=== PATIENT | female | born 1950 | race African-American/Black ===

== ENCOUNTER 2019-01-24 16:09 | Inpatient (IN) | payer OTHER ==
[~2019-01-24] VITALS: Ht 157.5 cm; Wt 84.4 kg
[~2019-01-24 16:09] MED LIST: ADULT LOW DOSE81 MG PO; ATORVASTATIN CA40 MG PO; GLUCOTROL10 MG PO; HYDROCHLOROTH12.5 M1 PO; METFORMIN HCL500 MG PO; TOPAMAX 25 MG T25 M1 PO; VERAPAMIL ER180 M1 PO; ZESTRIL20 MG PO
--- NOTE | 2019-01-24 17:02 | NUR ---
ASSESSMENT-PT WAS RECENTLY AT [facility] THEN WAS DISCHARGED TO [facility] FOR REHAB. PT SENT HERE TO INITIATE HEMODIALYSIS. PT SAYS SHE WAS TOLD IN SEP. THAT SHE NEEDED TO START HEMODIALYSIS AND PT THOUGHT SHE WOULD BE ABLE TO TO GET BY FROM A MEDICAL STANDPOINT BUT IS FAILING. PRIOR PT HAD BEEN LIVING AT HOME AND HER NIECE WAS STAYING WITH HER. PT HAS BEEEN USING A WALKER FOR ABOUT 3 MONTHS. NIECE HELPING HER WITH HER ADLS, MEALS, AND LAUNDRY. PT HAD BEEN DOING HER CLEANING. FAMILY PROVIDES TRANSPORTATION. PT HAS 3 SISTERS IN THE AREA. PT SAYS SHE HAD HH SERVICES IN [place]. BUT DOES NOT KNOW THE NAME OF HE AGENCY THAT CAME OUT. PT CURRENTLY SHORT OF BREATH AND HER 2 SISTERS HELPED PROVIDE ASSESSMENT INFO. FOLLOWING TO ASSIST WITH DC PLANNING.
[2019-01-24 17:53] VITALS: BP 185/97
[2019-01-24 18:11] LABS: HEMATOCRIT 24.3 % (37.0-47.0); HEMOGLOBIN 7.6 gm/dL (12.0-15.0); MCH 25.3 pg (26.0-34.0); MCHC 31.3 g/dL (28.0-37.0); MCV 80.8 fL (80.0-100.0); PLATELET COUNT 262 thou/uL (150-400); RBC 3.01 mil/uL (4.20-5.00); RDW 24.6 % (10.5-14.5); WBC 11.7 thou/uL (4.0-11.0)
[2019-01-24 18:32] LABS: ALBUMIN 1.7 g/dL (3.4-5.0); CALCIUM 7.8 mg/dL (8.5-10.1); CREATININE 5.5 mg/dL (0.6-1.0); POTASSIUM 5.4 mmol/L (3.5-5.1); TOTAL BILIRUBIN 0.1 mg/dL (<0.1-1.0); TOTAL PROTEIN 5.9 g/dL (6.4-8.2)
[2019-01-24 18:50] LABS: URINE BILIRUBIN NEGATIVE (Negative); URINE BLOOD 1+ (Negative); URINE CLARITY CLEAR; URINE COLOR YELLOW; URINE GLUCOSE-RANDOM* 1+ (Negative); URINE KETONES NEGATIVE (Negative); URINE LEUKOCYTES-REFLEX NEGATIVE (Negative); URINE NITRITE-REFLEX NEGATIVE (Negative); URINE PROTEIN (DIPSTICK) 3+ (Negative); URINE SPECIFIC GRAVITY 1.015 (1.005-1.035); URINE UROBILINOGEN 0.2 E.U./dl (0.2-1.0)
[2019-01-24 19:01] LABS: AMORPHOUS URATES Moderate /LPF (None Seen); BACTERIA-REFLEX None Seen /HPF (None Seen); CASTS None Seen /LPF (None Seen); SQUAMOUS 0-3 Few /LPF (0-3); URINE RBC 0-2 Rare /HPF (0-2); URINE WBC-REFLEX 0-5 Rare /HPF (0-5)
--- NOTE | 2019-01-24 19:08 | NUR ---
ASSESMENT COMPLETED. VSS. A/O. DENIES PAIN. SOA W/ EXERTION. NOTED GENERALIZED EDEMA. PLANS FOR TEMPORARY DIALYSIS CATH PLACEMENT IN AM. MURILLO PLACED. PT RESTING IN BED WILL CONT. TO MONITOR. BED ALARM ON.
[2019-01-24 19:12] LABS: ANISOCYTOSIS 3+; OVALOCYTES OCCASIONAL; SCHISTOCYTES OCCASIONAL
[2019-01-24 21:00] VITALS: BP 164/84
--- NOTE | 2019-01-25 01:29 | NUR ---
ASSESSMENT COMPLETED.LASIX ADMINISTRED ORDERED.MURILLO CATH TO DD.PT REPOSITIONED WHILE IN BED PER HER REQUEST.PT NPO AT THIS TIME FOR A PROCEDURE IN THE AM.FALL PRECAUTIONS IN PLACE. CALL LIGHT WITHIN REACH.
[2019-01-25 03:45] LABS: ALBUMIN 1.6 g/dL (3.4-5.0); CALCIUM 7.7 mg/dL (8.5-10.1); CREATININE 5.3 mg/dL (0.6-1.0); MAGNESIUM 2.1 mg/dL (1.8-2.4); PHOSPHORUS 7.6 mg/dL (2.5-4.9); POTASSIUM 5.4 mmol/L (3.5-5.1)
[2019-01-25 04:00] VITALS: BP 170/78
[2019-01-25 07:49] VITALS: BP 182/81
--- NOTE | 2019-01-25 11:28 | NUR ---
RECEIVED PT CARE APPROX 0700. A/O. DENIES PAIN. SOA W/ EXERTION. NO NV. DIALYSIS CATH PLACED IN IR TODAY. PT IN DIALYSIS AT THIS TIME- TOLERATING WELL. WILL CONT. TO MONITOR.
[2019-01-25 13:10] LABS: GLYCOHEMOGLOBIN (HGB A1C) 7.2 % (4.8-5.6)
--- NOTE | 2019-01-25 13:47 | NUR ---
FAXED FACE SHEET, H&P, RENAL CONSULT, DIALYSIS FLOW SHEET,CHEMISTRIES, CBC, COAGS, UA, CXR AND LINE PLACEMENT INFO TO [facility] TO GET PT SET-UP FOR OUTPT HEMODIALYSIS.
--- NOTE | 2019-01-25 14:38 | NUR ---
Nutrition: screen for dx new HD pt. Dialysis catheter placed in IR and pt receiving HD this am, has been NPO. No wt hx, note of swollen face in physician assessement and expect wt up with fluid gain. Lasix and other meds reviewed. K+ 5.4, Cl 108, BUN 57, Cr 5.3, Phos 7.6, albumin 1.6. No acute nutrition concerns noted at this time, does not appear at significant risk. Rec renal diet; RD available via consult for edu.
[2019-01-25] MEDS ORDERED: COREG25 MG PO (15:41)
[2019-01-25] MEDS ORDERED: NORVASC10 MG PO (15:41)
[2019-01-25] MEDS ORDERED: HYDRALAZINE 5050 MG PO (15:42)
[2019-01-25] MEDS ORDERED: PLAVIX 75 MG TA75 M1 PO (15:42)
[2019-01-25] MEDS ORDERED: TRAZODONE HCL50 MG PO (15:42)
[2019-01-25] MEDS ORDERED: DEMADEX20 MG PO (15:43)
[2019-01-25] MEDS ORDERED: SYSTANE GEL EYE10 ML OPHTHALMIC (15:44)
[2019-01-25 16:14] VITALS: BP 191/86
[2019-01-25 19:17] VITALS: BP 186/62
--- NOTE | 2019-01-26 02:30 | NUR ---
PT'S FAMILY AT BEDSIDE AT SHIFT CHANGE.PT WAS OBSERVED SITTING UP IN THE RECLINER IN HER ROOM WATCHING TV.PT STILL EDEMATOUS BUT BETTER THAN THE PREVIUOS DAY.PT REPOSITIONED PER HER REQUEST WHILE IN BED.DIALYSIS SITE TO HER R CHEST.PT DENIED PAIN SO FAR.MURILLO CATH TO DD.PT PLEASANT AND COOPERATIVE WITH CARE.PT ABLR TO MAKE HER NEEDS KNOWN.FALL PRECAUTIONS IN PLACE,CALL LIGHT WITHIN REACH.
[2019-01-26 03:55] VITALS: BP 175/82
[2019-01-26 07:24] LABS: ALBUMIN 1.4 g/dL (3.4-5.0); POTASSIUM 4.4 mmol/L (3.5-5.1)
[2019-01-26 07:30] LABS: CREATININE 4.1 mg/dL (0.6-1.0)
[2019-01-26 08:32] VITALS: BP 176/78
[2019-01-26 09:11] LABS: HEP B SURFACE Ab(ANTI-HBS Non Reactive (()); HEPATITIS B SURFACE AG Negative (Negative)
--- NOTE | 2019-01-26 15:54 | NUR ---
FAXED REFERRAL TO [facility] FOR SKILLED STAY LEFT MSG WITH DAMIAN IN ADM THAT PT TO DC MONDAY 01/29. DCP TO FOLLOW.
--- NOTE | 2019-01-26 16:57 | NUR ---
Assessment completed.vss.Pt up in chair since 10am till 1400.Dr Tiwari and Jose Elias here,order noted.Pt family called and updates given.Pt left for hemodialysis. [place] cath will be dc whenever pt completed treatment today.Pt c/o cold room and warm blanket given.Will continue to monitor.
[2019-01-26 17:01] VITALS: BP 193/89
--- NOTE | 2019-01-26 17:02 | NUR ---
FAXED ADDITIONAL LABS TO [facility] AND CONFIRMED THAT THEY HAVE RECEIVED THE INFO. WIRE CUTTER WILL CALL ME TOMORROW. FOLLOWING.
[2019-01-26 20:12] VITALS: BP 179/72
[2019-01-26 21:53] VITALS: BP 176/70
[2019-01-27 04:38] VITALS: BP 170/71
--- NOTE | 2019-01-27 06:42 | NUR ---
Assumed pt care at 1900. Pt A/OX4,denies pain on assessment. Up with assist of to [facility], pt noted to have bladder incontinence x3 during NOC stating she's not able to hold it. Pt got dialyzed yesterday 2.5L taken out and pt is to dialyze again this morning. Has a Right chest tesio. Up resting on the chair at this time.
[2019-01-27 07:49] VITALS: BP 155/77
[2019-01-27 08:13] LABS: HEMATOCRIT 22.8 % (37.0-47.0); HEMOGLOBIN 7.5 gm/dL (12.0-15.0); MCH 26.3 pg (26.0-34.0); MCHC 32.8 g/dL (28.0-37.0); MCV 79.9 fL (80.0-100.0); RBC 2.86 mil/uL (4.20-5.00); RDW 23.4 % (10.5-14.5); WBC 10.7 thou/uL (4.0-11.0)
[2019-01-27 08:20] LABS: CALCIUM 7.7 mg/dL (8.5-10.1); CREATININE 2.9 mg/dL (0.6-1.0); POTASSIUM 3.6 mmol/L (3.5-5.1)
[2019-01-27 15:21] VITALS: BP 155/77
--- NOTE | 2019-01-27 15:26 | NUR ---
Dc planning efforts discussed with the pt at bedside. She wants to go home with hh and outpt dialysis vs going back to SNF at [facility]. She feels she is getting stronger and she has the support of her niece and her sisters. She reports her sister can take her to dialysis 3 xwkly. Pt advised that her outpt schedule is being arranged in the [facility] for T-TH-Sat and shift time is 1200 noon with an arrival of 11:15am. She has had hh before and found their services helpful. She can not recall the agency name and wants someone who is in network with her ins.Listing declined and pt denies preference. [facility] notified of referral as they go to [place] and accept her plan. Possible dc tomorrow. Pt to update her family. She has a rwalker and cane for home use. DC financial planner to cancel referral with [facility].
[2019-01-27 15:32] VITALS: BP 155/77
[2019-01-27 16:00] VITALS: BP 157/54
--- NOTE | 2019-01-27 16:38 | NUR ---
Assumed pt care at 7am.Pt in chair receiving hemodialysis before the start of shift.Blood sugar was 42 early this am,no D50 available per pharmacy but apple juice 240ml given. 15minutes later blood sugar was increased to 74.Dr Tiwari and Jose Elias here,order noted.Per dialysis personnel report,3l of fluid was taken off today.Pt will be dialyzing in am prior to dc to rehab.Will continue to monitor.
[2019-01-27 20:00] VITALS: BP 153/67
--- NOTE | 2019-01-27 23:39 | NUR ---
ASSESSMENT COMPLETED. PT IS VERY PLEASANT. OBSERVED SITTING IN CHAIR. DENIES PAIN. EDEMA TO BLE UP TO THE THIGHS. PT HS BLOOD SUGAR WAS 57. GIVEN SOME APPLEJUICE AND SOME CRACKERS AND RECHECK WAS 82. DENIES SOA. IN A JOVIAL MOOD. WITH SOME STRESS INCONTINENCE.REPORT GIVEN TO TEJINDER CROWLEY AT AROUND 2300 HRS.
[2019-01-28] VITALS (7 sets, daily range): BP systolic 149–167; BP diastolic 67–77
--- NOTE | 2019-01-28 03:45 | NUR ---
PATIENT ALERT AND ORIENTED X4. SLEPT MOST OF NIGHT. NO C/OM PAIN.
[2019-01-28] MEDS ORDERED: ACETAMINOPHEN325 M1 PO (12:52)
[2019-01-28] MEDS ORDERED: TUMS PO (12:52)
[2019-01-28] MEDS ORDERED: TRIPHROCAPS SOFT1 MG PO (12:52)
[2019-01-28] MEDS ORDERED: DEMADEX20 MG PO (12:52)
--- NOTE | 2019-01-28 13:23 | NUR ---
PT DISCHARGING TODAY TO HOME WITH [facility] HH SPOKE WITH INTAKE LIASON AND SHE WILL NOTIFY PT TIME OF VISITS.
--- NOTE | 2019-01-28 14:21 | NUR ---
DISCHARGE PAPERS GONE OVER WITH PATIENT SIGNED AND COPY IN CHART. IV ACSESS DCD. RX'S GIVEN. ALL BELONGINGS PACKED AND SENT WITH PATIENT, SISTER TO COME AND PICK HER UP. PT TO HAVE DIAYLSIS TOMMORROW AT 11:15
--- NOTE | 2019-01-28 17:16 | NUR ---
RECEIVED CALL FROM JUAN FROM [facility] SAYING THEY WOULD PREFER PT STARTED ON TUES INSTEAD OF SAT. INFORMED DR ISBELL AND HE S/W [facility] AND HE STILL WANTS PT TO START ON SAT PLANNED.
--- NOTE | 2019-02-01 08:08 | HC ---
[facility] [place] [address] CONSULTATION Name: VONNIE RUSHING Room #: 426-P [facility] IN M.R.#: [id number] Admission: 01/24/19 ������������������ Attend Phys: Alex Moctezuma MD Discharge: 01/28/19 ������������������ Date of : 46 Report #: [id number] THIS REPORT FOR: //name// CC: Marilee Leger FAM unknown Alex Moctezuma DATE OF SERVICE: 01/24/2019 REASON FOR CONSULTATION: End-stage renal disease. REASON FOR PRESENTATION: Weakness and shortness of breath. HISTORY OF PRESENT ILLNESS: This is a 68-year-old with extensive past medical history including diabetes mellitus, hypertension, both were out of control. She used to follow up with me in the clinic and had chronic kidney disease with a baseline creatinine of around 2; however, this has progressed in a rather rapid way. Kidney biopsy confirmed an end-stage extensive fibrosis with diabetic and hypertensive changes. She has had numerous hospitalizations at different facilities and has suffered from chronic anemia for which she was supposed to have a bone marrow biopsy that has not been done. She visited with me in the clinic and labs from 01/22/2019 revealed that her creatinine was up to around 5.8. She did have significant hyperphosphatemia. She reported to me that she has been short of breath and having major issues with swelling, nausea, loss of appetite and weakness. She was informed that she is in need to initiate hemodialysis. Kidney education has been initiated as an outpatient and the patient was supposed to have an access placed soon. PAST MEDICAL HISTORY: 1. End-stage renal disease. 2. Diabetes mellitus. 3. Hypertension. 4. Chronic anemia. 5. Hyperlipidemia. 6. Remote history of breast reduction surgery. 7. Remote history of CVA. REVIEW OF SYSTEMS: GENERAL: Significant for weakness. CARDIOVASCULAR: Significant for dyspnea on exertion and shortness of breath. PULMONARY: Significant for shortness of breath and wheezes. GASTROINTESTINAL: Significant for loss of appetite and nausea. GENITOURINARY: No frequency, no urgency. MUSCULOSKELETAL: Back pain, inability to walk. NEUROLOGICAL: Significant for weakness and dizziness. [facility] [address] [place] [address] CONSULTATION Name: VONNIE RUSHING Room #: 426-P [facility] IN M.R.#: [id number] Admission: 01/24/19 ������������������ Attend Phys: Alex Moctezuma MD Discharge: 01/28/19 ������������������ Date of : 46 Report #: [id number] MEDICATIONS: 1. Atorvastatin. 2. Torsemide. 3. Hydrochlorothiazide. 4. Lisinopril. 5. Aspirin. 6. Glipizide. She is not taking metformin. FAMILY HISTORY: Significant for diabetes mellitus. ALLERGIES: None. PHYSICAL EXAMINATION: VITAL SIGNS: Blood pressure is elevated at 185/97, pulse rate is 81, respiratory rate is 18, temperature is 36.5. HEAD AND NECK: Elevated jugular venous pressure. CHEST: Bilateral crackles. CARDIOVASCULAR: No rub detected. ABDOMEN: Soft with abdominal wall edema. EXTREMITIES: Lower extremities, +4 edema. LABORATORY DATA: Reviewed. Hemoglobin is 7.6. Potassium is 5.4, BUN is 60, creatinine is 5.5. ASSESSMENT, IMPRESSION AND PLAN: 1. End-stage renal disease. 2. Hypertension. 3. Hyperkalemia. 4. Fluid overload, unable to control as an outpatient. 5. Anemia with extensive workup in the past. 6. The patient will be admitted. 7. N.p.o. status after midnight. 8. Lengthy discussion with the family regarding the patient's recurrent hospitalization. We will initiate hemodialysis with a tunneled catheter. IR consult to place a tunneled catheter tomorrow. 9. On attempt to control her blood pressure, dialysis, salt and fluid restriction. 10. Diuresis for tonight. 11. Hold losartan given her hyperkalemia. 12. Anemia investigation. ��������������������������������������������� <ELECTRONICALLY SIGNED> ���������������������������������������� By: Emanuel Boyd MD ��������������������������������������������� 02/01/19 0808 [id number] Emanuel Boyd MD /nt
== END 2019-01-28 14:51 | disposition home health service (06) | DRG 286 ==
LOC: 4E 16:09
PROVIDERS: Internal Medicine Nephrology; Nurse Practitioner; ADMIT Internal Medicine
PROC: 5A1D70Z Performance of Urinary Filtration, Intermittent, Less than 6 Hours Per Day (ICD-10-PCS; principal; 2019-01-24)
PROC: B244ZZZ Ultrasonography of Right Heart (ICD-10-PCS; 2019-01-25)
PROC: B2141ZZ Fluoroscopy of Right Heart using Low Osmolar Contrast (ICD-10-PCS; 2019-01-25)
PROC: 5A1D70Z Performance of Urinary Filtration, Intermittent, Less than 6 Hours Per Day (ICD-10-PCS; 2019-01-25)
PROC: 02H633Z Insertion of Infusion Device into Right Atrium, Percutaneous Approach (ICD-10-PCS; 2019-01-25)
PROC: 0JH63XZ Insertion of Tunneled Vascular Access Device into Chest Subcutaneous Tissue and Fascia, Percutaneous Approach (ICD-10-PCS; 2019-01-25)
PROC: 5A1D70Z Performance of Urinary Filtration, Intermittent, Less than 6 Hours Per Day (ICD-10-PCS; 2019-01-26)
DX: I13.2 Hypertensive heart and chronic kidney disease with heart failure and with stage 5 chronic kidney disease, or end stage renal disease (principal); N18.6 End stage renal disease; I50.33 Acute on chronic diastolic (congestive) heart failure; E46 Unspecified protein-calorie malnutrition; E11.22 Type 2 diabetes mellitus with diabetic chronic kidney disease; E78.5 Hyperlipidemia, unspecified; E87.5 Hyperkalemia; F32.9 Major depressive disorder, single episode, unspecified; D63.8 Anemia in other chronic diseases classified elsewhere; E66.9 Obesity, unspecified; Z86.73 Personal history of transient ischemic attack (TIA), and cerebral infarction without residual deficits; N26.9 Renal sclerosis, unspecified; Z79.899 Other long term (current) drug therapy; Z83.3 Family history of diabetes mellitus; Z79.82 Long term (current) use of aspirin; Z79.84 Long term (current) use of oral hypoglycemic drugs; Z82.49 Family history of ischemic heart disease and other diseases of the circulatory system; Z80.8 Family history of malignant neoplasm of other organs or systems; Z98.42 Cataract extraction status, left eye; Z98.41 Cataract extraction status, right eye; Z68.34 Body mass index [BMI] 34.0-34.9, adult
CPT/HCPCS: 10783; 32100

== ENCOUNTER 2020-03-06 16:43 | Emergency (ER) | payer OTHER ==
[~2020-03-06] VITALS: Ht 157.5 cm; Wt 57.1 kg
[~2020-03-06 16:43] MED LIST changes: +ACETAMINOPHEN325 M1 PO; +COREG25 MG PO; +DEMADEX20 MG PO; +HYDRALAZINE 5050 MG PO; +NORVASC10 MG PO; +PLAVIX 75 MG TA75 M1 PO; +SYSTANE GEL EYE10 ML OPHTHALMIC; +TRAZODONE HCL50 MG PO; +TRIPHROCAPS SOFT1 MG PO; +TUMS PO
[2020-03-06 17:07] LABS: ABSOLUTE NEUTROPHILS 7.2 thou/uL (1.4-8.2); EOSINOPHILS 1.6 % (0.0-3.0); HEMATOCRIT 39.6 % (37.0-47.0); HEMOGLOBIN 13.1 gm/dL (12.0-15.0); LYMPHOCYTES 15.3 % (24.0-44.0); MCH 31.1 pg (26.0-34.0); MCV 94.3 fL (80.0-100.0); MONOCYTES 9.2 % (1.0-8.0); PLATELET COUNT 215 thou/uL (150-400); POLYS 72.9 % (36.0-66.0); RBC 4.19 mil/uL (4.20-5.00); WBC 9.9 thou/uL (4.0-11.0)
[2020-03-06 17:18] LABS: ANION GAP 9 mmol/L (7-16); BUN 26 mg/dL (7-18); CALCIUM 8.3 mg/dL (8.5-10.1); CHLORIDE 98 mmol/L (98-107); CO2 31 mmol/L (21-32); CREATININE 4.3 mg/dL (0.6-1.0); GLUCOSE 199 mg/dL (74-106); SODIUM 138 mmol/L (136-145)
[2020-03-06 17:29] LABS: ALBUMIN 3.3 g/dL (3.4-5.0); MAGNESIUM 2.4 mg/dL (1.8-2.4); SGOT 27 U/L (15-37); SGPT 27 U/L (30-65); TOTAL BILIRUBIN 0.3 mg/dL (0.2-1.0); TOTAL PROTEIN 8.3 g/dL (6.4-8.2); TROPONIN-I <0.06 ng/mL (<0.06)
[2020-03-06] MEDS ORDERED: ZOFRAN ODT4 MG DISSOLVE (19:00)
[2020-03-06 19:07] VITALS: BP 148/71
--- NOTE | 2020-03-07 08:31 | EKG ---
[facility] [place] [address] ELECTROCARDIOGRAM REPORT Name: VONNIE RUSHING [id number] Admission: 03/06/20 Attend Phys: Discharge: 03/06/20 Date of : 46 Report #: [id number] THIS REPORT FOR: cc: Ary Hill MD, Karla L. MD Lundgren,Terrence Roberts MD [facility] ~ THIS REPORT FOR: //name// [facility] ED Test Date: 2020-03-06 Test Time: 16:56:41 Pat Name: VONNIE RUSHING Department: Room: Gender: F Molder Setter: : 1950 Requested By: Naomi Bridges Order Number: [id number] MD: Terrence Smalls Measurements Intervals [place] Rate: 77 P: 14 MI: 112 QRS: -2 QRSD: 78 T: 13 QT: 427 QTc: 484 Interpretive Statements Sinus rhythm Left ventricular hypertrophy Poor R wave progression Cannot rule out inferior infarct, age indeterminate Compared to ECG 01/10/2016 08:02:15 Ventricular premature complex(es) no longer present Electronically Signed On 03-07-2020 8:31:08 CDT by Terrence Smalls [email or web address] <ELECTRONICALLY SIGNED> By: Terrence Smalls MD, [facility] 03/07/20 0831 1656 1656 Terrence Smalls MD, [facility] /EPI
== END 2020-03-06 19:10 | disposition home or self-care (01) ==
LOC: ER 16:43
PROVIDERS: Emergency Medicine
DX: R55 Syncope and collapse (principal); R11.0 Nausea; I12.9 Hypertensive chronic kidney disease with stage 1 through stage 4 chronic kidney disease, or unspecified chronic kidney disease; E11.22 Type 2 diabetes mellitus with diabetic chronic kidney disease; N18.9 Chronic kidney disease, unspecified; E78.5 Hyperlipidemia, unspecified; Z79.82 Long term (current) use of aspirin; Z86.73 Personal history of transient ischemic attack (TIA), and cerebral infarction without residual deficits; Z79.899 Other long term (current) drug therapy

== ENCOUNTER 2020-11-12 21:37 | Observation (INO) | payer OTHER ==
[~2020-11-12] VITALS: Ht 162.6 cm; Wt 55.5 kg
[~2020-11-12 21:37] MED LIST changes: +ZOFRAN ODT4 MG DISSOLVE
[2020-11-12 21:38] VITALS: BP 136/64
[2020-11-12] MEDS ORDERED: HUMALOG100 UNIT/1 SUBQ (21:48)
[2020-11-12] MEDS ORDERED: GLUCAGON EMERGEN1 M1 IM (21:48)
[2020-11-12] MEDS ORDERED: LANTUSSOLASTAR SUBQ (21:49)
[2020-11-12] MEDS ORDERED: ISOSORBIDE DN 110 MG PO (21:49)
[2020-11-12] MEDS ORDERED: LIDODERM1 EACH TOP (21:50)
[2020-11-12] MEDS ORDERED: RESTORA RX CAP1 EACH PO (21:50)
[2020-11-12] MEDS ORDERED: MIRALAX119 GM PO (21:51)
[2020-11-12] MEDS ORDERED: LOSARTAN POTASS50 MG PO (21:51)
[2020-11-12] MEDS ORDERED: RENVELA0.8 GM PO (21:52)
[2020-11-12] MEDS ORDERED: SENNA PLUS TAB1 EACH PO (21:52)
[2020-11-12 23:16] LABS: ABSOLUTE NEUTROPHILS 7.1 thou/uL (1.4-8.2); BASOPHILS 0.8 % (0.0-2.0); EOSINOPHILS 1.7 % (0.0-3.0); HEMATOCRIT 31.3 % (37.0-47.0); HEMOGLOBIN 9.9 gm/dL (12.0-15.0); LYMPHOCYTES 11.4 % (24.0-44.0); MCH 28.2 pg (26.0-34.0); MCHC 31.7 g/dL (28.0-37.0); MCV 89.1 fL (80.0-100.0); MONOCYTES 7.2 % (1.0-8.0); PLATELET COUNT 60 thou/uL (150-400); POLYS 78.9 % (36.0-66.0); RBC 3.51 mil/uL (4.20-5.00); RDW 18.8 % (10.5-14.5)
[2020-11-12 23:20] LABS: CALCIUM 8.5 mg/dL (8.5-10.1); CREATININE 5.5 mg/dL (0.6-1.0); POTASSIUM 3.7 mmol/L (3.5-5.1)
[2020-11-12 23:26] LABS: ALBUMIN 2.8 g/dL (3.4-5.0); TOTAL BILIRUBIN 0.2 mg/dL (0.2-1.0); TOTAL PROTEIN 7.5 g/dL (6.4-8.2)
[2020-11-13] VITALS (12 sets, daily range): BP systolic 148–226; BP diastolic 65–98
--- NOTE | 2020-11-13 06:59 | EKG ---
[address] [place] [address] ELECTROCARDIOGRAM REPORT Name: VONNIE RUSHING Room #: 206-P [facility] M.R.#: [id number] Admission: 11/13/20 Attend Phys: Anahi Puga Discharge: Date of : 48 Report #: [id number] [facility] ED Test Date: 2020-11-13 Test Time: 00:39:58 Pat Name: VONNIE RUSHING Department: Room: 206 Gender: F Civil Engineering Director: anitra aguillon : 1950 Requested By: Bria Tillman Order Number: [id number] MD: Fred Stevens Measurements Intervals [place] Rate: 78 P: 54 NC: 122 QRS: 0 QRSD: 95 T: 44 QT: 476 QTc: 543 Interpretive Statements Sinus rhythm Probable left atrial enlargement Anteroseptal infarct, age indeterminate Prolonged QT interval Baseline wander in lead(s) II,III,aVF Compared to ECG 03/06/2020 16:56:41 Prolonged QT interval now present Left ventricular hypertrophy no longer present Poor R-wave progression no longer present Myocardial infarct finding still present Electronically Signed On 11-13-2020 6:59:45 CDT by Fred Stevens [email or web address] <ELECTRONICALLY SIGNED> By: Fred Stevens MD, FACC 11/13/20 0659 0039 0039 Fred Stevens MD, FAC /EPI
--- NOTE | 2020-11-13 07:38 | NUR ---
RECEIVED REPORT FROM ALCIDES WALSH RN.PT ARRIVED TO ROOM 206 AROUND 0645.PT A/O X 4.WEAK.BP ELEVATED.MONITOR SHOW SR.REPORT GIVEN TO DAY SHIFT RN.
[2020-11-13 09:12] LABS: CHOLESTEROL 143 mg/dL (<200); HDL CHOLESTEROL 61 mg/dL (>40); LDL CHOLESTEROL 68 mg/dL (<100); TC:HDL 2.3 Ratio (Not establshd); TRIGLYCERIDE 73 mg/dL (<150); VLDL 15 mg/dL (<40)
--- NOTE | 2020-11-13 09:38 | 2DMMODE ---
[facility] [place] [address] 2 D/M-MODE ECHOCARDIOGRAM Name: VONNIE RUSHING Room #: 206-P [facility] M.R.#: [id number] Admission: 11/13/20 Attend Phys: Jem Contreras MD Discharge: Date of : 46 Report #: [id number] THIS REPORT FOR: cc: Abhishek Mendoza MD, Srinath MD Park, Jin S. MD ~ APPROVED REPORT Study performed: 11/13/2020 08:36:43 EXAM: Comprehensive 2D, Doppler, and color-flow Echocardiogram Patient Location: Bedside Room #: 206 Status: routine BSA: 1.83 HR: 79 bpm BP: 158/79 mmHg Rhythm: NSR Other Information Study Quality: Excellent Indications Elevated troponin. Hx: CVA, ESRD, HTN, HLP, DM. 2D Dimensions RVDd: 35.00 mm IVSd: 12.00 (7-11mm) LVOT Diam: 20.00 (18-24mm) LVDd: 50.00 mm PWd: 12.00 (7-11mm) Ascending Ao: 34.00 (22-36mm) LVDs: 35.00 (25-40mm) Left Atrium: 39.00 (27-40mm) Aortic Root: 34.00 mm Volumes Left Atrial Volume (Systole) Single Plane 4CH: 71.15 mL Single Plane 2CH: 63.39 mL LA ESV Index: 39.00 mL/m2 Aortic Valve AoV Peak Ramírez.: 1.51 m/s AO Peak Gr.: 9.08 mmHg LVOT Max P.39 mmHg LVOT Max V: 1.16 m/s [facility] [address] [address] 2 D/M-MODE ECHOCARDIOGRAM Name: VONNIE RUSHING Room #: 206-P [facility] IN [facility]#: [id number] Admission: 11/13/20 Attend Phys: Jem Contreras MD Discharge: Date of : 48 Report #: [id number] NEFTALY Vmax: 2.42 cm2 Mitral Valve E/A Ratio: 0.7 MV Decel. Time: 152.93 ms MV E Max Ramírez.: 0.75 m/s MV A Ramírez.: 1.07 m/s MV PHT: 44.35 ms IVRT: 83.04 ms Pulmonary Valve PV Peak Ramírez.: 1.01 m/s PV Peak Gr.: 4.06 mmHg Tricuspid Valve TR Peak Ramírez.: 2.70 m/s RAP Estimate: 5.00 mmHg TR Peak Gr.: 30.00 mmHg PA Pressure: 35.00 mmHg Left Ventricle The left ventricle is normal size. There is normal LV segmental wall motion. Mild concentric left ventricular hypertrophy. Left ventricular systolic function is normal. LVEF is 55-60%. Mild diastolic dysfunction is present (impaired relaxation pattern). Right Ventricle The right ventricle is normal size. The right ventricular systolic function is normal. Atria Left atrium is mildly dilated. The right atrium size is normal. Aortic Valve The aortic valve is normal in structure. Trace aortic regurgitation. There is no aortic valvular stenosis. Mitral Valve The mitral valve is normal in structure. Mild mitral annular calcification. Mild to moderate mitral regurgitation. No evidence of mitral valve stenosis. Tricuspid Valve The tricuspid valve is normal in structure. Trace tricuspid regurgitation. Estimated PAP is 35mmHg. [facility] [place] [address] [place] [address] 2 D/M-MODE ECHOCARDIOGRAM Name: VONNIE RUSHING BRIGIDO Room #: 206-P [facility] IN M.R.#: [id number] Admission: 11/13/20 Attend Phys: Jem Contreras MD Discharge: Date of : 46 Report #: [id number] Pulmonic Valve The pulmonary valve is normal in structure. Trace pulmonic regurgitation. Great Vessels The aortic root is normal in size. The ascending aorta is normal in size. IVC is normal in size and collapses >50% with inspiration. Pericardium There is no pericardial effusion. <Conclusion> The left ventricle is normal size. Mild concentric left ventricular hypertrophy. Left ventricular systolic function is normal. Mild diastolic dysfunction is present (impaired relaxation pattern). The right ventricle is normal size. Left atrium is mildly dilated. Trace aortic regurgitation. Mild to moderate mitral regurgitation. Trace tricuspid regurgitation. Estimated PAP is 35mmHg. <ELECTRONICALLY SIGNED> By: Eris Null MD 11/13/20937 7 7 Eris Null MD /INF
--- NOTE | 2020-11-13 16:19 | NUR ---
Patient admits from [facility] with weakness and elevated troponin. Met with patient reviewed role of casemgt. Plan return to [facility] once stable. Sp with RN at [facility]. Patient is on skilled rehab unit but past week not working with therapy. Plan returm, updated facility. Casemgt following.
--- NOTE | 2020-11-13 17:57 | NUR ---
RECEIVED PT'S CARE AROUND 0735; PT. ALERT; PER REPORT PT'S BP AT 0630 ON THE 200s; TAKEN OVER RLE; PER NIGHT RN NOT MEDICATION GIVEN; BP RE-ASSESSED; SBP ON THE 150s; 0600, 0700 AND 0900 MEDICATION GIVEN; ISOSORBIDE DINITRATE NOT GIVEN; NOT MEDICATION AVAILABLE; [employer] OXIDIZED FINISH PLATER AT THE BED SIDE DURING AM ASSESSMENT; PT. AOX4; ST. HAVING PAIN OVER R. SHOULDER IF BP TAKING OVER UPPER ARM; EDUCATED ABOUT THE IMPORTANCE OF TAKING BP OVER THE FOREARM TO HAVE ACCURATE BP; ST. UNDERSTANDING; EDUCATED ABOUT FALL PRECAUTIONS; ST. UNDERSTANDING; PER [employer] OXIDIZED FINISH PLATER KEEP PT. NPO FOR THE REST OF THE DAY AFTER BREAKFAST; [employer] NOTIFIED ABOUT ISOSORBIDE HOLD; PT. NOTIFIED ABOUT TEST; ST. UNDERSTANDING; GONE FOR PROCEDURE AFTER NOON; BACK AROUND 1500; REQUESTED "SOMETHING TO EAT"; LUNCH BOX PROVIDED; SBP ON THE 160s; SCHEDULED MEDICATION GIVEN; ORTHOSTATIC BP TAKEN; CHECK CHARTING; C/O PAIN; PRN ACETAMINOPHEN GIVEN BEFORE TEST; C/O PAIN AFTER TEST; PHYSICIAN NOTIFIED; ORDERS RECEIVED; RE-ASSESSMENT PT. ST. "MEDICATION WORKED REALLY GOOD"; ASSESSMENT CHARGED; FOLLOWING POC; WILL PASS ON REPORT;
[2020-11-13 23:06] LABS: GLYCOHEMOGLOBIN (HGB A1C) 5.4 % (4.8-5.6)
--- NOTE | 2020-11-14 01:52 | NUR ---
DENIES PAIN.UNABLE TO GO TO SLEEP AND STILL WATCHING TV.POSSIBLE DIALYSIS TOMORROW.MONITOR SHOWS SR,ST.POC CONTINUED.
[2020-11-14 04:45] VITALS: BP 169/86
[2020-11-14 05:30] LABS: HEMATOCRIT 29.2 % (37.0-47.0); HEMOGLOBIN 9.1 gm/dL (12.0-15.0); MCH 27.5 pg (26.0-34.0); MCHC 31.1 g/dL (28.0-37.0); MCV 88.5 fL (80.0-100.0); RBC 3.29 mil/uL (4.20-5.00); RDW 18.8 % (10.5-14.5); WBC 11.4 thou/uL (4.0-11.0)
[2020-11-14 05:41] LABS: CALCIUM 8.4 mg/dL (8.5-10.1); POTASSIUM 4.1 mmol/L (3.5-5.1); TROPONIN-I 0.08 ng/mL (<0.06)
[2020-11-14 06:10] LABS: CREATININE 7.4 mg/dL (0.6-1.0)
[2020-11-14 07:55] VITALS: BP 125/95
[2020-11-14] MEDS ORDERED: HYDROCODON-ACE1 EAC7 PO (09:54)
[2020-11-14 11:31] VITALS: BP 167/80
[2020-11-14 11:32] VITALS: BP 167/80
--- NOTE | 2020-11-14 12:10 | NUR ---
PT DISCHARGING TODAY BACK TO [facility] FAXED DC ORDERSS/SUMMARY TO FACILITY SPOKE WITH BONILLA IN ADM SHE RECEIVED ORDERS AND ARRABGED TRANSPORT BY [facility] FOR [phone] BUT HAD TO LET BONILLA KNOW TO SET TRANSPORT BACK TO 1400. UNIT NOTIFIED AND CHART COPY PER US. RN TO CALL REPORT TO [phone].
--- NOTE | 2020-11-14 15:08 | NUR ---
PATIENT DISCHARGED BACK TO [facility]. TRANSPORTED BY [facility]ELCHA[facility] AT 1400. CLOTHING AND INFORMATION PACKET SENT WITH PATIENT. REPORT CALLED TO NURSE AT [place].
--- NOTE | 2020-11-18 21:28 | HC ---
[facility] [place] [address] CONSULTATION Name: ESTEPHANIA RUSHING Room #: 206-P [facility] Boris [place]#: [id number] Admission: 11/13/20 Attend Phys: Jem Contreras MD Discharge: 11/14/20 Date of : 46 Report #: [id number] THIS REPORT FOR: cc: Abhishek Mendoza MD, Srinath MD Al-Absi,Emanuel Avilez MD ~ DATE OF SERVICE: 11/13/2020 REASON FOR CONSULTATION: End-stage renal disease. REASON FOR PRESENTATION: Told that she has high blood sugar. HISTORY OF PRESENT ILLNESS: The patient is in end-stage renal disease, maintained on hemodialysis every Thursday, Thursday and Thursday. She was initially thinking that she has some issues with high blood sugar; however, she also reported that she was found to be hypotensive and she went completely out. The patient's blood pressure in her nursing facility was reported to be 70/40. The patient does have a tendency to have labile blood pressure. She was admitted to further evaluate. I was consulted to manage her end-stage renal disease. PAST MEDICAL HISTORY: 1. End-stage renal disease, maintained on hemodialysis. 2. Diabetes mellitus. 3. Hypertension. 4. Hyperlipidemia. 5. Remote history of CVA. SOCIAL HISTORY: She resides in a nursing facility. PAST SURGICAL HISTORY: 1. Cataract. 2. AV fistula. MEDICATIONS: 1. Aspirin. 2. Atorvastatin. 3. Folic acid. 4. Carvedilol. 5. Hydralazine. 6. Losartan. ALLERGIES: None. FAMILY HISTORY: Hypertension. [facility] [address] [place] [address] CONSULTATION Name: ESTEPHANIA RUSHING Room #: 206-P [facility] [place]#: [id number] Admission: 11/13/20 Attend Phys: Jem Contreras MD Discharge: 11/14/20 Date of : 46 Report #: [id number] REVIEW OF SYSTEMS: GENERAL: No fever or chills. CARDIOVASCULAR: No chest pain or palpitation. PULMONARY: No cough or hemoptysis. NEUROLOGICAL: Questionable history of syncope. GASTROINTESTINAL: No nausea or vomiting. PHYSICAL EXAMINATION: GENERAL: Alert, awake, oriented. VITAL SIGNS: Blood pressure is 148/67. HEAD AND NECK: No jugular venous distention, no bruit, no thyromegaly. CHEST: No crackles. CARDIOVASCULAR: No rub detected. ABDOMEN: Soft, nontender. EXTREMITIES: Lower extremities, no edema. LABORATORY DATA: Sodium 137, potassium 3.7, BUN is 31, creatinine is 5.5. Hemoglobin is 9.9, platelet is 60,000. ASSESSMENT, IMPRESSION AND PLAN: 1. End-stage renal disease. 2. Hypertension. 3. Potential syncope. 4. Continue with the usual hemodialysis every Thursday, Thursday and Thursday. 5. Resume blood pressure medication. 6. I will talk with her dialysis unit to discuss her dialysis session yesterday and decide if the incident was by any means related to her dialysis. <ELECTRONICALLY SIGNED> By: Emanuel Boyd MD 11/18/208 0 1 Emanuel Boyd MD /nt
== END 2020-11-14 15:17 ==
LOC: ER 21:37 → EROBS 11-13 01:41 → 2N 11-13 01:41
PROVIDERS: Nurse Practitioner Family; ADMIT Hospitalist; ATTEND Hospitalist
DX: I13.2 Hypertensive heart and chronic kidney disease with heart failure and with stage 5 chronic kidney disease, or end stage renal disease (principal); E11.22 Type 2 diabetes mellitus with diabetic chronic kidney disease; I50.33 Acute on chronic diastolic (congestive) heart failure; N18.6 End stage renal disease; R74.8 Abnormal levels of other serum enzymes; E11.65 Type 2 diabetes mellitus with hyperglycemia; I63.9 Cerebral infarction, unspecified; E78.5 Hyperlipidemia, unspecified; F32.9 Major depressive disorder, single episode, unspecified; Z79.82 Long term (current) use of aspirin; Z79.899 Other long term (current) drug therapy; Z79.4 Long term (current) use of insulin; Z99.2 Dependence on renal dialysis
CPT/HCPCS: 32100

== ENCOUNTER 2020-11-21 08:40 | Emergency (ER) | payer OTHER ==
[~2020-11-21] VITALS: Ht 157.5 cm; Wt 57.6 kg
[~2020-11-21 08:40] MED LIST changes: +GLUCAGON EMERGEN1 M1 IM; +HUMALOG100 UNIT/1 SUBQ; +HYDROCODON-ACE1 EAC7 PO; +ISOSORBIDE DN 110 MG PO; +LANTUSSOLASTAR SUBQ; +LIDODERM1 EACH TOP; +LOSARTAN POTASS50 MG PO; +MIRALAX119 GM PO; +RENVELA0.8 GM PO; +RESTORA RX CAP1 EACH PO; +SENNA PLUS TAB1 EACH PO
[2020-11-21 10:12] LABS: ABSOLUTE NEUTROPHILS 7.3 thou/uL (1.4-8.2); BASOPHILS 1.5 % (0.0-2.0); EOSINOPHILS 1.4 % (0.0-3.0); HEMATOCRIT 30.9 % (37.0-47.0); HEMOGLOBIN 9.6 gm/dL (12.0-15.0); LYMPHOCYTES 11.5 % (24.0-44.0); MCH 27.5 pg (26.0-34.0); MCHC 31.1 g/dL (28.0-37.0); MCV 88.4 fL (80.0-100.0); MONOCYTES 9.2 % (1.0-8.0); PLATELET COUNT 223 thou/uL (150-400); POLYS 76.4 % (36.0-66.0); RDW 18.1 % (10.5-14.5); WBC 9.6 thou/uL (4.0-11.0)
[2020-11-21 10:18] LABS: CALCIUM 8.3 mg/dL (8.5-10.1); CREATININE 6.2 mg/dL (0.6-1.0); POTASSIUM 4.2 mmol/L (3.5-5.1)
[2020-11-21 10:20] LABS: INR 1.11
[2020-11-21 10:38] LABS: ALBUMIN 2.8 g/dL (3.4-5.0); TOTAL BILIRUBIN 0.4 mg/dL (0.2-1.0); TOTAL PROTEIN 7.3 g/dL (6.4-8.2)
[2020-11-21 10:41] LABS: ANISOCYTOSIS 2+
[2020-11-21 11:08] VITALS: BP 176/76
[2020-11-23] MEDS ORDERED: ARTIFICIAL TEA1 EACH EA. EYE (17:02)
[2020-11-23] MEDS ORDERED: GLUCAGON EMERGEN1 MG IM (17:04)
[2020-11-23] MEDS ORDERED: HYDROXYZINE HCL25 M2 PO (17:07)
[2020-11-23] MEDS ORDERED: TRAMADOL 50 MG50 MG PO (17:10)
== END 2020-11-21 12:04 ==
LOC: ER 08:40
PROVIDERS: Emergency Medicine
DX: I12.0 Hypertensive chronic kidney disease with stage 5 chronic kidney disease or end stage renal disease (principal); E11.22 Type 2 diabetes mellitus with diabetic chronic kidney disease; N18.6 End stage renal disease; Z99.2 Dependence on renal dialysis; Z79.82 Long term (current) use of aspirin; Z79.899 Other long term (current) drug therapy; Z79.4 Long term (current) use of insulin; Z86.73 Personal history of transient ischemic attack (TIA), and cerebral infarction without residual deficits

== ENCOUNTER 2020-12-03 18:04 | Emergency (ER) | payer OTHER ==
[~2020-12-03] VITALS: Ht 157.5 cm; Wt 57.1 kg
[~2020-12-03 18:04] MED LIST changes: +ARTIFICIAL TEA1 EACH EA. EYE; +GLUCAGON EMERGEN1 MG IM; +HYDROXYZINE HCL25 M2 PO; +TRAMADOL 50 MG50 MG PO
[2020-12-03 21:45] VITALS: BP 138/63
== END 2020-12-03 21:46 ==
LOC: ER 18:04
DX: R53.1 Weakness (principal); E11.22 Type 2 diabetes mellitus with diabetic chronic kidney disease; I12.0 Hypertensive chronic kidney disease with stage 5 chronic kidney disease or end stage renal disease; N18.6 End stage renal disease; E78.5 Hyperlipidemia, unspecified; Z99.2 Dependence on renal dialysis; Z79.82 Long term (current) use of aspirin; Z79.4 Long term (current) use of insulin; Z79.899 Other long term (current) drug therapy

== ENCOUNTER 2021-04-21 13:17 | Emergency (ER) | payer OTHER ==
[~2021-04-21] VITALS: Ht 157.5 cm; Wt 57.6 kg
--- NOTE | ~2021-04-21 | EMS ---
[address] [address] EMS Patient Care Report Name: ESTEPHANIA RUSHING Room #: DEP VENTURA Garland#: [id number] Admission: 04/21/21 Attend Phys: Discharge: 04/21/21 Date of : 46 Report #: [id number] THIS REPORT FOR: //name// Report Transmitted: 04/22/2021 12:00 EMS Care Summary [place], [place]/[facility] Incident [id number] @ 04/21/2021 12:47 Incident Location [id number] [place] [address] [address] Patient ESTEPHANIA RUSHING Female, 70 Years 1950 Patient Address [id number] [place] [address] [address] [place] [address] Patient History Cardiac Arrythmia,Diabetes,Hypertension (HTN),Kidney/Renal Failure,Cardiac Condition - Other,Anemia, Patient Allergies No known allergies, Patient Medications Carvedilol, Isosorbide, Humalog, Aspirin, Lidocaine, Glucagon, Hydralazine, Renvela, Losartan, Atorvastatin, Hydroxyzine, Senna, Tramadol, Chief Complaint SYNCOPAL EPISODE Disposition Transported No Lights/[place] Dispatch Reason Unconscious/Fainting Transported To [facility] Narrative SCENE: ON ARRIVAL PT FOUND LYING IN BED IN ROOM AT ADDRESS PROVIDED. PT IS [facility] [address] [place] [address] EMS Patient Care Report Name: ESTEPHANIA RUSHING Room #: DEP ER Gill#: [id number] Admission: 04/21/21 Attend Phys: Discharge: 04/21/21 Date of : 46 Report #: [id number] AWAKE AND ALERT WITH A GCS OF 15. STAFF ON SCENE REPORTS PT WAS STANDING UPRIGHT, ATTEMPTING TO WALK TO THE BATHROOM, WHEN A TECH WITNESSED HER HAVING AN ACTIVE BOWEL MOVEMENT AND EXPERIENCE A NEAR SYNCOPAL EPISODE. TECH WAS ABLE TO GET TO PT BEFORE PT COLLAPSED. STAFF REPORTS PT HAS A KNOWN HISTORY OF SYNCOPE. PT CURRENTLY DENIES ALL COMPLAINTS. STAFF STATES PT NEEDS TO BE CHECKED OUT. PT AGREES. PT SLID TO EMS STRETCHER. AMBULANCE: VITALS MONITORED. NO CHANGES. Initial Vitals @13:04P: 80,R: 16,BP: 142/79,Pain: 0/10,GCS: 15,SpO2: 94,Revised Trauma: 12, @13:07P: 98,R: 16,BP: 144/80,Pain: 0/10,GCS: 15,Glucose: 174,Revised Trauma: 12, Assessments @12:55MENTAL:No Abnormalities,SKIN:No Abnormalities,HEENT:Head/Face: No Abnormalities,Eyes: No Abnormalities,Neck/Airway: No Abnormalities,LUNG SOUNDS:General: No Abnormalities,Left Upper: No Abnormalities,Right Upper: No Abnormalities,Left Lower: No Abnormalities,Right Lower: No Abnormalities,ABDOMEN:General: No Abnormalities,Left Upper: No Abnormalities,Right Upper: No Abnormalities,Left Lower: No Abnormalities,Right Lower: No Abnormalities,PELVIS//GI:No Abnormalities,EXTREMITIES:Left Arm: No Abnormalities,Right Arm: No Abnormalities,Left Leg: No Abnormalities,Right Leg: No Abnormalities,PULSE:NEURO:No Abnormalities,@13:10MENTAL:No Abnormalities,SKIN:No Abnormalities,HEENT:Head/Face: No Abnormalities,Eyes: No Abnormalities,Neck/Airway: No Abnormalities,LUNG SOUNDS:General: No Abnormalities,Left Upper: No Abnormalities,Right Upper: No Abnormalities,Left Lower: No Abnormalities,Right Lower: No Abnormalities,ABDOMEN:General: No Abnormalities,Left Upper: No Abnormalities,Right Upper: No Abnormalities,Left Lower: No Abnormalities,Right Lower: No Abnormalities,PELVIS//GI:No Abnormalities,EXTREMITIES:Left Arm: No Abnormalities,Right Arm: No Abnormalities,Left Leg: No Abnormalities,Right Leg: No Abnormalities,PULSE:NEURO:No Abnormalities, Impression Syncope / Fainting Procedures @12:54ALS AssessmentResponse: UnchangedSucceeded@13:01StretcherResponse: Unchanged Timeline 12:45,Call Received 12:45,Dispatch Notified 12:47,Dispatched 12:47,En Route 12:51,On Scene [address] [address] EMS Patient Care Report Name: ESTEPHANIA RUSHING BRIGIDO Room #: DEP VENTURA Garland#: [id number] Admission: 04/21/21 Attend Phys: Discharge: 04/21/21 Date of : 46 Report #: [id number] 12:54,At Patient 12:54,ALS Assessment,Response: UnchangedSucceeded, 13:01,Stretcher,Response: Unchanged 13:02,Depart Scene 13:04,BP: 142/79 M,PULSE: 80,RR: 16 R,SPO2: 94 Ox,ETCO2: ,BG: ,PAIN: 0,GCS: 15, 13:07,BP: 144/80 M,PULSE: 98,RR: 16 R,SPO2: Ox,ETCO2: ,B,PAIN: 0,GCS: 15, 13:10,At Destination 13:24,Call Closed Disclaimer v1.1 Copyright 2020 [employer] This EMS Care Summary contains data elements from the applicable legal record (which may be displayed differently). It is designed to provide pertinent information for the following purposes: continuity of care, clinical quality, and state data reporting. The complete legal record is available to ED staff and administrators of the receiving hospital in [employer] Patient Tracker. All data is provided "as is."
[2021-04-21 13:47] LABS: ABSOLUTE NEUTROPHILS 8.1 thou/uL (1.4-8.2); BASOPHILS 0.9 % (0.0-2.0); EOSINOPHILS 2.8 % (0.0-3.0); HEMATOCRIT 28.8 % (37.0-47.0); LYMPHOCYTES 12.8 % (24.0-44.0); MCH 26.8 pg (26.0-34.0); MCHC 31.4 g/dL (28.0-37.0); MCV 85.5 fL (80.0-100.0); MONOCYTES 9.7 % (1.0-8.0); PLATELET COUNT 248 thou/uL (150-400); POLYS 73.8 % (36.0-66.0); RBC 3.36 mil/uL (4.20-5.00); WBC 10.9 thou/uL (4.0-11.0)
[2021-04-21 14:00] LABS: CALCIUM 8.1 mg/dL (8.5-10.1); CREATININE 7.6 mg/dL (0.6-1.0)
[2021-04-21 14:11] LABS: TOTAL BILIRUBIN 0.4 mg/dL (0.2-1.0)
[2021-04-21 14:12] LABS: ALBUMIN 2.5 g/dL (3.4-5.0); TOTAL PROTEIN 6.9 g/dL (6.4-8.2)
[2021-04-21 18:22] VITALS: BP 170/60
--- NOTE | 2021-04-22 07:35 | EKG ---
[facility] [place] [address] ELECTROCARDIOGRAM REPORT Name: ESTEPHANIA RUSHING [id number] Admission: 04/21/21 Attend Phys: Discharge: 04/21/21 Date of : 46 Report #: [id number] [facility] ED Test Date: 2021-04-21 Test Time: 13:29:01 Pat Name: ESTEPHANIA RUSHING Department: Room: Gender: F Fitting Room Associate: WOODY : 1950 Requested By: Danilo Mendez Order Number: [id number] MD: Fred Stevens Measurements Intervals [place] Rate: 77 P: -1 NV: 122 QRS: -18 QRSD: 74 T: 31 QT: 429 QTc: 486 Interpretive Statements Sinus rhythm Left ventricular hypertrophy Inferior infarct, old Compared to ECG 11/27/2020 05:07:07 Q waves no longer present Myocardial infarct finding still present Electronically Signed On 04-22-2021 7:35:09 CDT by Fred Stevens [email or web address] <ELECTRONICALLY SIGNED> By: Fred Stevens MD, [facility] 04/22/21 0735 [id number] Fred Stevens MD, FACC /EPI
== END 2021-04-21 18:23 ==
LOC: ER 13:17
PROVIDERS: Emergency Medicine
DX: I12.0 Hypertensive chronic kidney disease with stage 5 chronic kidney disease or end stage renal disease (principal); R55 Syncope and collapse; E11.22 Type 2 diabetes mellitus with diabetic chronic kidney disease; E78.5 Hyperlipidemia, unspecified; F32.9 Major depressive disorder, single episode, unspecified; N18.6 End stage renal disease; Z79.4 Long term (current) use of insulin; Z79.899 Other long term (current) drug therapy